=== PATIENT | female | born 1995 | race Caucasian/White ===

== ENCOUNTER 2019-06-16 12:52 | Emergency (ER) | payer SELFPAY ==
--- NOTE | 2019-06-16 13:11 | ER Document Report ---
ED Medical Screen (RME) - General Chief Complaint: Vaginal Pain Stated Complaint: PELVIC CRAMPING Time Seen by Provider: 06/16/19 13:07 - HPI Notes: 06/16/19 13:10 Patient is a 24-year-old female with 3 previous abortions and 1 miscarriage who presents approximately 5 to 5.5 weeks complaining of having lower pelvic cramping that started today. She is not having any vaginal bleeding, odor, or discharge. She is able to eat and drink without difficulty. She is urinating normally and having normal bowel movements. Denies drug allergies. Patient states that the symptoms are similar to when she had a miscarriage before. No fever. I have treated and performed a rapid initial assessment of this patient. A comprehensive ED assessment and evaluation of the patient, analysis of test results and completion of medical decision making process will be conducted by additional ED providers. PHYSICAL EXAMINATION: GENERAL: Well-appearing, well-nourished and in no acute distress. A&Ox4. Answers questions appropriately. Abdomen: Limited exam in triage, no obvious focal tenderness to palpation. Physical Exam - Vital signs Vitals: Temp Pulse Resp BP Pulse Ox 98.3 F 93 16 125/70 100 06/16/19 13:02 06/16/19 13:02 06/16/19 13:02 06/16/19 13:02 06/16/19 13:02 Course - Vital Signs Vital signs: Temp Pulse Resp BP Pulse Ox 98.3 F 93 16 125/70 100 06/16/19 13:02 06/16/19 13:02 06/16/19 13:02 06/16/19 13:02 06/16/19 13:02
--- NOTE | 2019-06-16 14:09 | ER Document Report ---
ED GI/ - General Chief Complaint: Abdominal Cramping Stated Complaint: PELVIC CRAMPING Time Seen by Provider: 06/16/19 13:07 Mode of Arrival: Ambulatory Information source: Patient TRAVEL OUTSIDE OF THE [place] IN LAST 30 DAYS: No - HPI Patient complains to provider of: Pelvic pain, - Pt is with previous miscarriages and ETOPs with crampy pelvic pain earlier today. She states she is approx 5.5 weeks . She denies vaginal bleeding. - Related Data Allergies/Adverse Reactions: cephalexin [From Keflex] Allergy (Verified 06/16/19 13:12) Past Medical History - General Information source: Patient - Social History Smoking Status: Never Smoker Chew tobacco use (# tins/day): Yes Frequency of alcohol use: Occasional Drug Abuse: None Family History: None Patient has suicidal ideation: No Patient has homicidal ideation: No Review of Systems - Review of Systems Constitutional: No symptoms reported EENT: No symptoms reported Cardiovascular: No symptoms reported Respiratory: No symptoms reported Gastrointestinal: No symptoms reported Female Genitourinary: See HPI, Musculoskeletal: No symptoms reported Neurological/Psychological: No symptoms reported -: Yes All other systems reviewed and negative Physical Exam - Vital signs Vitals: Temp Pulse Resp BP Pulse Ox 98.3 F 93 16 125/70 100 06/16/19 13:02 06/16/19 13:02 06/16/19 13:02 06/16/19 13:02 06/16/19 13:02 - General General appearance: Appears well In distress: None - HEENT Head: Normocephalic Pupils: PERRL Pharynx: Normal Neck: Normal - Respiratory Respiratory status: No respiratory distress Breath sounds: Normal - Cardiovascular Rhythm: Regular Heart sounds: Normal auscultation Murmur: No - Abdominal Inspection: Normal Bowel sounds: Normal Tenderness: Tender - min TTP bilateral lower quadrants without peritoneal signs - Genitourinary External exam: Other - pelvic deferred per pt. request - Extremities General upper extremity: Normal inspection General lower extremity: Normal inspection - Neurological Neuro grossly intact: Yes Cognition: Normal Orientation: AAOx4 Course - Re-evaluation Re-evalutation: 06/16/19 15:35 pt. feels well at time of d/c -- expressed desire to go home with sister - Vital Signs Vital signs: Temp Pulse Resp BP Pulse Ox 98.3 F 93 16 125/70 100 06/16/19 13:02 06/16/19 13:02 06/16/19 13:02 06/16/19 13:02 06/16/19 13:02 - Laboratory Laboratory results interpreted by me: 06/16/19 06/16/19 13:46 13:46 Beta HCG, Quant 191.81 H Urine Protein 30 H - Diagnostic Test Radiology reviewed: Image reviewed - thickened endometrium consistent with 5 weeks . No acute pathology Discharge - Discharge Clinical Impression: Pelvic cramping Qualifiers: Weeks of gestation: less than 8 weeks Qualified Code(s): Z3A.01 - Less than 8 weeks gestation of Condition: Stable Disposition: HOME, SELF-CARE Additional Instructions: rest, continue pre-theron vitamins, return for vaginal bleeding or increased pain Referrals: CAIN JEFFERSON, [ACTIVE STAFF] - Follow up as needed
[2019-06-16 14:10] LABS: APPEARANCE,URINE SLIGHTLY-CLOUDY; BILIRUBIN,URINE NEGATIVE (NEGATIVE); COLOR,URINE YELLOW; GLUCOSE, URINE NEGATIVE (NEGATIVE); KETONES,URINE NEGATIVE (NEGATIVE); PROTEIN,URINE 30 mg/dL (NEGATIVE); URINE SPECIFIC GRAVITY 1.021; UROBILINOGEN,URINE NEGATIVE mg/dL (<2.0)
[2019-06-16 16:02] VITALS: BP 112/67
--- NOTE | 2019-06-16 16:14 | RADIOLOGY REPORT (SQ) ---
EXAM DESCRIPTION: U/S [id number] TRNABD 1GES W/ODOP COMPLETED DATE/TIME: 06/16/2019 3:21 pm REASON FOR STUDY: approx 5 wks preg, cramping COMPARISON: None. TECHNIQUE: Transabdominal static and realtime grayscale images acquired of the pelvis. Additional se lected spectral and color Doppler images recorded. All images stored on PACs. [facility] CLINICAL DATES: LMP 05/09/2019. 5 weeks 3 days. LIMITATIONS: None. FINDINGS: No intrauterine gestational sac is present at this time. UTERUS: No masses. No anomalies. CERVICAL LENGTH: 2.4 cm. Closed. RIGHT ADNEXA: Normal ovary with normal vascular flow. 3.9 x 2.4 x 1.8 cm. 2 x 2.1 x 1.1 cm cyst, po ssible corpus luteum. No adnexal free fluid. No adnexal masses. LEFT ADNEXA: Normal ovary with normal vascular flow. 4.9 x 2.4 x 1.9 cm. No adnexal free fluid. No adnexal masses. FREE FLUID: None. OTHER: No other significant finding. IMPRESSION: There is no intrauterine gestation at this time. Follow-up as clinically indicated. TECHNICAL DOCUMENTATION: JOB ID: [id number] [employer]- All Rights Reserved rev-11/01 Reading location - IP/workstation name: [email or web address]
== END 2019-06-16 16:00 | disposition home or self-care (01) ==
LOC: ER 12:52
DX: O26.891 Other specified pregnancy related conditions, first trimester (principal); R10.2 Pelvic and perineal pain; R10.9 Unspecified abdominal pain; Z3A.01 Less than 8 weeks gestation of pregnancy
CPT/HCPCS: 36415; 76801; 81001; 84702; 99284